=== PATIENT | male | born 1980 | race Two or more races ===

== ENCOUNTER 2020-04-25 10:56 | Emergency (ER) | payer SELFPAY ==
[~2020-04-25] VITALS: Ht 193 cm; Wt 131.8 kg
[2020-04-25] MEDS ORDERED: DOXYCYCLINE HYCLATE 100 MG TABLET PO ONE (11:30)
[2020-04-25] MEDS ORDERED: IBUPROFEN 800 MG TABLET PO ONE (11:30)
[2020-04-25 12:20] VITALS: BP 126/75
== END 2020-04-25 12:23 | disposition home or self-care (01) ==
LOC: EMS 10:58
DX: L03.113 Cellulitis of right upper limb (principal)
CPT/HCPCS: Z7502; Z7610